=== PATIENT | male | born 1990 | race Caucasian/White ===

== ENCOUNTER 2020-06-18 10:09 | Outpatient (RCR) | payer MEDICARE, SELFPAY | END 2020-08-11 23:59 | LOC: IMMUN 10:09 | PROVIDERS: Referring Provider Family Medicine; Visit Provider Family Medicine | DX: Z23 Encounter for immunization (principal) | CPT/HCPCS: 0001A; 0002A; 91300 ==

== ENCOUNTER → 2021-10-21 | Outpatient (CLI) | payer OTHER, SELFPAY ==
--- NOTE | 2021-10-21 09:18 | RAD_ITS ---
STUDY: X-RAY - RIGHT CLAVICLE REASON FOR EXAM: Male, 30 years old. Fall. Pain. TECHNIQUE: 2 view(s) of the clavicle. COMPARISON: None. FINDINGS: Normal clavicle. Small subacromial spur. Normal acromioclavicular articulation. Normal visualized sternoclavicular articulation. Normal visualized pulmonary apex. RAD/Clavicle IMPRESSION: Small subacromial spur. No acute abnormality or erosive changes. Electronically Signed: Lamin Baum, at 9:59 EDT ,
--- NOTE | 2021-10-21 09:30 | RAD_ITS ---
STUDY: X-RAY - RIGHT SHOULDER REASON FOR EXAM: Male, 30 years old. Fall. Pain. TECHNIQUE: 4 view(s) of the shoulder. COMPARISON: None. FINDINGS: Normal glenohumeral articulation. Normal acromioclavicular joint. Subacromial spur. Normal humeral head and visualized proximal humerus. The soft tissue structures are unremarkable. Normal visualized pulmonary apex. RAD/Shoulder min 2 Views IMPRESSION: Subacromial spur. No acute abnormality or erosive changes. Electronically Signed: Lamin Baum, at 9:59 EDT ,
== END | disposition home or self-care (01) ==
LOC: RAD 09:17
PROVIDERS: Referring Provider Internal Medicine; Visit Provider Internal Medicine
DX: M25.511 Pain in right shoulder (principal); W19.XXXA Unspecified fall, initial encounter
CPT/HCPCS: 73000; 73030

== ENCOUNTER → 2024-04-23 | Outpatient (CLI) | payer OTHER, SELFPAY ==
[2024-04-23 09:28] LABS: Absolute Lymphocyte Count 2.42 X10^3/uL (0.83-4.51); Absolute Neutrophil Count 3.8 X10^3/uL (2.0-7.7); Basophil# 0.05 X10^3/uL; Basophil% 0.7 % (0-1); Eosinophil# 0.53 X10^3/uL; Eosinophils% 7.3 % (0-5); Hematocrit 45.5 % (40-54); Hemoglobin 15.7 g/dL (13.0-16.5); Lymphocyte # 2.42 X10^3/ul (0.83-4.51); Lymphocyte % 33.2 % (19-41); Mean Corp Hgb Conc 34.5 g/dL (32-36); Mean Corpuscular Hgb 28.9 pg (27.0-32.0); Mean Corpuscular Volume 83.6 fL (80-94); Mean Platelet Vol. 9.2 fl (6.2-12.0); Monocyte# 0.46 X10^3/uL; Monocyte% 6.3 % (0-10); NRBC Flagged by Analyzer 0 % (0-5); Neutrophil # 3.83 X10^3/uL (2.7-7.7); Neutrophil % 52.4 % (47-70); Platelet Count 319 K/mm3 (150-450); RBC Distribution Width CV 12.2 % (11.6-14.6); RBC Distribution Width SD 36.8 fl (35.1-43.9); Red Blood Count 5.44 M/mm3 (4.6-6.2); White Blood Count 7.3 K/mm3 (4.4-11.0)
--- NOTE | 2024-04-23 09:50 | RAD_ITS ---
PROCEDURE: LUMBAR SPINE 2 OR 3 VIEWS REASON FOR EXAM: Low back pain. TECHNIQUE: 3 view(s) of the lumbar spine COMPARISON: None. FINDINGS: Lumbar vertebral bodies maintain a normal height and alignment. Intervertebral disc spacing is preserved. No acute fracture or subluxation is identified. Bilateral sacroiliac joints are symmetric. RAD/Lumbar Spine 2 or 3 Views IMPRESSION: No acute osseous abnormality. If clinical concern for radiculopathy, MRI is a more sensitive exam. Reading Location: [facility]
[2024-04-23 10:01] LABS: ALB/GLOB Ratio 1.1 RATIO (0.9-2.4); AST(SGOT) 18 U/L (15-37); Alanine Aminotransfer ALT/SGPT 45 U/L (16-61); Albumin, Serum 3.9 g/dL (3.2-5.0); Alkaline Phosphatase 109 U/L (45-117); Anion Gap 4 (5-15); BUN 11 mg/dL (7-18); BUN/Creat Ratio 9.6 RATIO (10-20); Chloride 106 mmol/L (98-107); Cholesterol 211 mg/dL (200); Creatinine, Serum 1.14 mg/dL (0.70-1.30); EST Glomerular Filtration Rate 78 mL/min (>60); Est Glom Filt Rate - Afr Amer 95 mL/min (>60); Globulin 3.6 g/dL (2.2-4.2); Glucose 94 mg/dL (74-106); High Density Lipoprotein 51 mg/dL; Potassium 3.9 mmol/L (3.5-5.1); Protein, Total 7.5 g/dL (6.4-8.2); Sodium Level 138 mmol/L (136-145); Triglycerides 104 mg/dL; Very Low Density Lipoprotein 21 mg/dL (5-40)
[2024-04-23 12:05] LABS: Hemoglobin A1c 5.2 % (3.8-5.6)
== END | disposition home or self-care (01) ==
DX: Z13.6 Encounter for screening for cardiovascular disorders (principal); Z13.220 Encounter for screening for lipoid disorders; Z13.1 Encounter for screening for diabetes mellitus; M54.50 Low back pain, unspecified
CPT/HCPCS: 36415; 72100; 80053; 80061; 83036; 84443; 85025

== ENCOUNTER → 2024-05-20 | Outpatient (CLI) | payer OTHER, SELFPAY ==
--- NOTE | 2024-05-20 08:00 | MRI_ITS ---
PROCEDURE: MRI lumbar spine without IV contrast REASON FOR EXAM: LOW BACK PAIN TECHNIQUE: Multisequence multiplanar MR images of the lumbar spine were obtained without the administration of intravenous contras. COMPARISON: 04/23/2024 FINDINGS: Vertebral body heights are within normal limits. Negative for fracture or marrow replacement. Alignment is intact. Disc spaces are preserved. Conus medullaris is within normal limits and terminates at L1. No paraspinal mass. L1-2: No focal disc abnormality, spinal stenosis or foraminal narrowing. L2-3: No focal disc abnormality, spinal stenosis or foraminal narrowing. L3-4: No focal disc abnormality, spinal stenosis or foraminal narrowing. L4-5: Mild posterior disc bulge. Mild bilateral facet arthrosis. No significant spinal stenosis. Minimal bilateral foraminal narrowing. L5-S1: No focal disc abnormality, spinal stenosis or foraminal narrowing. MRI/Spine Lumbar (Routine) IMPRESSION: No focal disc abnormality, significant spinal stenosis or foraminal narrowing. Reading Location: [facility]
== END | disposition home or self-care (01) ==
DX: M54.50 Low back pain, unspecified (principal)
CPT/HCPCS: 72148

== ENCOUNTER → 2024-09-12 | Outpatient (CLI) | payer OTHER, SELFPAY | END | disposition home or self-care (01) | LOC: LABSPEC 10:52 | PROVIDERS: Referring Provider Surgery; Visit Provider Surgery | DX: Z30.2 Encounter for sterilization (principal) | CPT/HCPCS: 88302 ==